=== PATIENT | male | born 1955 | race Caucasian/White ===

== ENCOUNTER → 2017-05-10 | Day surgery (SDC) | payer OTHER ==
[~2017-05-10] VITALS: Ht 188 cm; Wt 89.4 kg
[~2017-05-10] MED LIST: NAPR220C11 PO; Sodium Chloride LOK Flush 10 mL Syringe IVFLUSH SCH; fentaNYL-PF 50 mCg/mL 2 mL Inj IVPUSH PRN
[2017-05-10 09:58] VITALS: BP 134/89; PULSE 83; RESP 16; O2SAT 97
[2017-05-10 12:12] VITALS: BP 97/58; PULSE 76; RESP 16; O2SAT 94
--- NOTE | 2017-05-10 12:15 | PCM.ANEP1 ---
Post Anesthesia PACU Phase 1 Assessment Vital Signs Vital Signs Date Time Temp Pulse Resp B/P Pulse Ox O2 Delivery O2 Flow Rate FiO2 05/10/17 12:12 76 16 97/58 94 Room Air 05/10/17 09:58 83 16 134/89 97 Room Air Anesthetic Administered: MAC Level of Alertness: Awake, talking CHENG's with Equal Strength: Yes Pain: No Nausea or Vomiting: No CV Function & Hydration Stable: Yes Airway Device: Lungs: Clear to Auscultation, Clear to Percussion PACU Phase 2 Assessment Complications: No Follow up Care: No Patient Instructions Provided: N/A Comments See anesth record for PACU VS. PACU VSS Gab Morales MD May 10, 2017 12:15
--- NOTE | 2017-05-10 12:15 | PCM.HPANE ---
Patient Data Surgeon Admitting Provider: Attending Provider:Masha Young MD Primary Care Physician:Junaid Cedillo MD Other Provider: Reason for Visit Screening Ht/WT & BMI Height (Feet): 6 Height (Inches): 2 Weight (Kilograms): 89.36 Body Mass Index 25.00 Allergies Coded Allergies: codeine (Verified Adverse Reaction, Intermediate, vomiting, 05/08/17) Past Anesthesia History Anesthesia History: Positive for:: Fam Malignant Hypertherm (brother- from) , Denies:: Abnormal Airway, Anesthesia Reactions, Difficult Intubation, Fam Anesthesia Reaction, Malignant Hyperthermia Diabetes History Hx Diabetes?: No MRSA MRSA: No Medications Discontinued Reported Medications Naproxen Sodium (Aleve)220 Mg [id number] Mg PO as needed 05/08/17 History History of ENT Problems?: No HEENT History: Denies:: Abnormal Airway Difficult Intubation Dysphagia Hearing Problem Denture Type: None Teeth Condition: Within Normal Limits Hx of Heart Problems?: No Cardiovascular History: Denies:: AICD Abdominal Aortic Aneurism Atrial Fibrillation Cardiac Surgery Chest Pain Congestive Heart Failure Coronary Artery Disease Edema Heart Murmur Hypertension Irregular Heartbeat Pacemaker Peripheral Vascular Rheumatic Fever Thrombophlebitis Valvular Heart Disease Hx of Respiratory Problem?: No Respiratory History: Denies:: Asthma COPD Chest Surgery Cough Dyspnea Emphysema Hemoptysis Oxygen Administration Pneumonia Pulmonary Embolism Tuberculosis Use of C-PAP Machine Use of Inhalers / NEBS Hx Neurologic Problems?: No Neurological History: Denies:: CVA Hx of GI Problems?: Yes Hx of Problems?: No Hx Musculoskeletal Problems?: No Musculoskeletal History: Positive for:: Fibromyalgia Denies:: Joint Replacement Psycho Social History: Positive for:: Anxiety (situational) Denies:: Hx Depression Hx Surgeries?: Yes (left arm, facial sx, tonsillectomy) Hx Any Other Health Problems?: Yes Hx Diabetes: No Hx Alcohol Use: Yes (very seldom) Stop/Bang Treated for Sleep Apnea?: No Do You Have a CPAP Machine?: No S-Snoring: Do You Snore Loudly: No T-Tired: feel tired, fatigued: No O-Obsered: Observed not breath: No P-Blood Pressure: treated: No B- Body Mass Index > 35 kg/m2: No A- Age over 50: Yes N- Neck Large Circumference: No G- Gender Male: Yes SIA Total Score: 2 Risk Assessment Category Category 1A: Patient has history of documented sleep apnea, and HAS NOT received any narcotic, sedative or anesthesia administration during this stay. Category 1B: Patient has history of documented sleep apnea, and HAS received any narcotic , sedative or anesthesia administration during this stay Category 2: Patient has SUSPECTED Obstructive Sleep Apnea, and HAS received any narcotic , sedative or anesthesia administration during this stay. Category 3: Patient has SUSPECTED Obstructive Sleep Apnea and HAS NOT received narcotic, sedative or anesthesia administration during this stay. Category 4: Outpatient in Procedural Areas with known sleep apnea or who screen positive for High Risk via the STOP/BANG questionnaire. Exam Exam Vital Signs Vital Signs Date Time Temp Pulse Resp B/P Pulse Ox O2 Delivery O2 Flow Rate FiO2 05/10/17 09:58 83 16 134/89 97 Room Air General Appearance: Alert, Oriented X3 HEENT/AIRWAY: MP 2 Lungs: Clear to Auscultation, Clear to Percussion Heart: Exam Unremarkable, Regular Rate/Rhythm Plan Impression Patient chart reviewed, patient interviewed and anesthestic plan with risks, benefits, and alternatives discussed, and informed consent obtained. ASA Physical Status: ASA2 Mod Systemic Disease Anesthetic Plan: MAC Bene/Risks/Altern/Consents: Yes HP Complete Prior to Induction: Yes Other I was asked by the surgeon for assistance in sedating this patient for a colonoscopy. His VSS and are wnl. He is not able to answer me when I arrive. I will proceed with a rescue anesthetic. Gab Morales MD May 10, 2017 11:43
[2017-05-10 12:21] VITALS: BP 106/68; PULSE 73; RESP 16; O2SAT 94
[2017-05-10 12:26] VITALS: BP 114/75; PULSE 76; RESP 16; O2SAT 96
--- NOTE | 2017-05-10 14:26 | ENDO ---
[address] [address] ENDOSCOPY PROCEDURE PATIENT: MEENAKSHI MCLAUGHLIN : 1955 MR#: [id number] ADMIT: 05/10/2017 JOB ID: [id number] DATE: 05/10/2017 PREPROCEDURAL DIAGNOSIS(ES): Colon cancer screening. POSTPROCEDURAL DIAGNOSIS: Colon cancer screening. PROCEDURE PERFORMED: Screening colonoscopy. SURGEON: Masha Young M.D. FILM PAINTER: Jimmy Balderas M.D., R-3 INSTRUMENT: [employer] PCF H 180 AL MEDICATIONS: 1. Versed 10 mg. 2. Fentanyl 200 mcg. FINDINGS: Normal colonoscopy to the cecum and terminal ileum. HISTORY OF PRESENT ILLNESS: This is a 61-year-old man who presented to my office with a complaint of perianal pain with bowel movements. He did not have findings on anoscopy or external examination to explain his symptoms. Additionally, at the age of 61, he had never undergone a screening colonoscopy. FINDINGS: Normal colonoscopy to the cecum and normal distal terminal ileum. He had severe pain during the procedure in the perianal region and required anesthesia rescue. He has one external hemorrhoidal skin tag that had been seen previously, but no additional perianal pathology, and no rectal pathology on antegrade or retroflex view. DESCRIPTION OF PROCEDURE: The patient was brought to endoscopy suite and placed in left lateral decubitus position. A preprocedural pause was performed to confirm the correct patient, procedure and site. Digital rectal examination was performed and was painful. He had one external hemorrhoidal skin tag. The endoscope was advanced and he required maximal moderate sedation, and, therefore, an video rental clerk was called. Please see Dr. Morales's separate dictation with regards to sedation administered. A colonoscopy was achieved to the cecum and the distal portion of the terminal ileum was visualized and was normal. The colonoscope was slowly withdrawn. The patient tolerated the procedure well once the video rental clerk was present. There were no polyps, strictures or masses within the entire examined colon. Retroflexed examination of the rectum was normal. The colonoscope was withdrawn. The patient tolerated the procedure moderately well. FINDINGS: External hemorrhoidal skin tag. Severe perianal pain with digital rectal examination and intubation. No other pathologic findings. COMPLICATIONS: None. ESTIMATED BLOOD LOSS: None. SPECIMENS: None.
== END | disposition home or self-care (01) ==
LOC: END 00:30
PROVIDERS: ATTEND Surgery
DX: Z12.11 Encounter for screening for malignant neoplasm of colon (principal); K64.4 Residual hemorrhoidal skin tags; K62.89 Other specified diseases of anus and rectum; M79.7 Fibromyalgia; F41.9 Anxiety disorder, unspecified; Z87.891 Personal history of nicotine dependence
CPT/HCPCS: G0121; G0500; J2250; J3010; J7030